=== PATIENT | male | born 1975 ===

== ENCOUNTER → 2022-10-04 08:22 | Outpatient (BNVA) | payer OTHER, SELFPAY | PROVIDERS: Visit Provider Otolaryngology | DX: H83.3X3 Noise effects on inner ear, bilateral (principal); H93.13 Tinnitus, bilateral | CPT/HCPCS: 99203 ==

== ENCOUNTER 2022-10-13 20:00 | Outpatient (CLI) | payer OTHER, SELFPAY | END 2022-10-13 20:01 | disposition home or self-care (01) | LOC: SLEEP 10-14 05:21 | PROVIDERS: Visit Provider Emergency Medicine Emergency Medical Services | DX: G47.33 Obstructive sleep apnea (adult) (pediatric) (principal) | CPT/HCPCS: 95810 ==

== ENCOUNTER 2023-01-11 20:00 | Outpatient (CLI) | payer OTHER, SELFPAY | END 2023-01-11 20:01 | disposition home or self-care (01) | LOC: SLEEP 01-12 06:17 | PROVIDERS: Visit Provider Emergency Medicine Emergency Medical Services | DX: G47.33 Obstructive sleep apnea (adult) (pediatric) (principal) | CPT/HCPCS: 95811 ==

== ENCOUNTER → 2024-08-01 14:49 | Outpatient (BNVA) | payer OTHER, SELFPAY | PROVIDERS: Visit Provider Orthopaedic Surgery | DX: M47.12 Other spondylosis with myelopathy, cervical region (principal); M54.2 Cervicalgia | CPT/HCPCS: 72050; 99204 ==

== ENCOUNTER → 2024-08-08 14:23 | Outpatient (BNVA) | payer OTHER, SELFPAY | PROVIDERS: Visit Provider Orthopaedic Surgery | DX: M47.12 Other spondylosis with myelopathy, cervical region (principal); Z09 Encounter for follow-up examination after completed treatment for conditions other than malignant neoplasm | CPT/HCPCS: 99214 ==